=== PATIENT | female | born 1970 | race Caucasian/White ===

== ENCOUNTER 2019-12-31 03:56 | Day surgery (SDC) | payer BC ==
[2019-12-31] MEDS ORDERED: NORMAL SALINE 1000 ML 1,000 ML IV ONE (04:09)
[2019-12-31 04:31] LABS: ABSOLUTE BASOPHILS # (AUTO) 0.2 10^3/uL (0.0-0.2); ABSOLUTE EOSINOPHILS # (AUTO) 0.4 10^3/uL (0.0-0.6); ABSOLUTE LYMPHOCYTES (AUTO) 5.9 10^3/uL (0.5-4.7); ABSOLUTE MONOCYTES (AUTO) 1.2 10^3/uL (0.1-1.4); ABSOLUTE NEUT (AUTO) 8.4 10^3/uL (1.7-8.2); BASOPHILS % (AUTO) 1.2 % (0-2); EOSINOPHILS % (AUTO) 2.3 % (0-6); HEMATOCRIT 40.5 % (36.0-47.0); HEMOGLOBIN 14.1 g/dL (12.0-15.5); MEAN CORPUSCULAR HEMOGLOBIN 33.4 pg (27.0-33.4); MEAN CORPUSCULAR HGB CONC 34.8 g/dL (32.0-36.0); MEAN CORPUSCULAR VOLUME 96 fl (80-97); MONOCYTES % (AUTO) 7.3 % (3-13); PLATELET COUNT 399 10^3/uL (150-450); RED BLOOD COUNT 4.22 10^6/uL (3.72-5.28); RED CELL DISTRIBUTION WIDTH 13.3 % (11.5-14.0); SEGMENTED NEUTROPHILS % (AUTO) 52.2 % (42-78); TOTAL CELLS COUNTED % (AUTO) 100 %
--- NOTE | 2019-12-31 04:37 | ER Document Report ---
ED GI/ <FIFI CROWDER - Last Filed: 12/31/19 07:20> - General Mode of Arrival: Ambulatory Information source: Patient <JOSÉ MIGUEL BROWN - Last Filed: 12/31/19 07:24> - General Chief Complaint: Vaginal Bleeding Stated Complaint: VAGINAL BLEEDING Time Seen by Provider: 12/31/19 04:07 Notes: 49-year-old female patient with history of total hysterectomy 20 years ago presents to the emergency department with complaints of vaginal bleeding that began after intercourse. Patient reports she started bleeding vaginally at approximately 10 PM. She states that she has used towels and has gone through several. She denies any pain but reports a "fullness". She has never had symptoms like these before. She has not had intercourse in 1 year prior to tonight. She reports that the intercourse was aggressive. (JOSÉ MIGUEL BROWN) - Related Data Allergies/Adverse Reactions: Sulfa (Sulfonamide Antibiotics) Allergy (Verified 12/31/19 04:14) Past Medical History - General Information source: Patient - Social History Smoking Status: Never Smoker Family History: Reviewed & Not Pertinent Patient has homicidal ideation: No - Medical History Medical History: Other - Fibromyalgia Past Surgical History: Reports: Hx Gynecologic Surgery <JOSÉ MIGUEL BROWN - Last Filed: 12/31/19 07:24> Review of Systems - Review of Systems Female Genitourinary: Vaginal bleeding -: Yes All other systems reviewed and negative <JOSÉ MIGUEL BROWN - Last Filed: 12/31/19 07:24> Physical Exam <JOSÉ MIGUEL BROWN - Last Filed: 12/31/19 07:24> - Vital signs Vitals: Temp Pulse Resp BP Pulse Ox 97.6 F 144 H 22 H 109/72 99 12/31/19 04:04 12/31/19 04:04 12/31/19 04:04 12/31/19 04:04 12/31/19 04:04 - Notes Notes: PHYSICAL EXAMINATION: GENERAL: Well-appearing, well-nourished and in no acute distress. HEAD: Atraumatic, normocephalic. EYES: Pupils equal round and reactive to light, extraocular movements intact, conjunctiva are normal. ENT: Nares patent, oropharynx clear without exudates. Moist mucous membranes. NECK: Normal range of motion, supple without lymphadenopathy LUNGS: Breath sounds clear to auscultation bilaterally and equal. No wheezes rales or rhonchi. HEART: Regular rate and rhythm without murmurs ABDOMEN: Soft, nontender, nondistended abdomen. No guarding, no rebound. No masses appreciated. Female : Normal external genitalia. Cuff intact. Small amount of dark red blood noted in the vaginal canal, very mild active bleeding noted. Musculoskeletal: Normal range of motion, no pitting or edema. No cyanosis. NEUROLOGICAL: Cranial nerves grossly intact. Normal speech, normal gait. Normal sensory, motor exams PSYCH: Normal mood, normal affect. SKIN: Warm, Dry, normal turgor, no rashes or lesions noted. (JOSÉ MIGUEL BROWN) Course - Laboratory Result Diagrams: 12/31/19 06:48 12/31/19 04:10 <FIFI CROWDER - Last Filed: 12/31/19 07:20> - Laboratory Result Diagrams: 12/31/19 06:48 12/31/19 04:10 <JOSÉ MIGUEL BROWN - Last Filed: 12/31/19 07:24> - Re-evaluation Re-evalutation: 12/31/19 07:20 Has to do a reevaluation of Ms. Rawls, remarkable for clotted blood in the posterior vaginal vault, right inferior posterior wall tear with some clotted blood noted. Given the drop in hemoglobin and the duration of bleeding, [employer] front end architect Dr. Amaya was contacted. (FIFI CROWDER) 12/31/19 05:32 Patient was initially tachycardic on arrival with a heart rate of 144. This quickly resolved after patient settled into a room and placed on the monitor. She has not had any episodes of syncope. She has never had a blood transfusion before. Her vaginal exam did not show any obvious hemorrhage. The cuff appeared intact. Her initial hemoglobin is 14. Repeat will be drawn in 2 hours. Patient continues to deny any pain. 12/31/19 07:14 Hemoglobin has dropped to 11.8. She has not had much active bleeding here in the emergency department. New pelvic exam was done with attending physician, Dr. Crowder. Clot was removed, there is a small tear to the posterior vaginal cuff. Dr. Crowder will call [employer] front end architect. (JOSÉ MIGUEL BROWN) - Vital Signs Vital signs: Temp Pulse Resp BP Pulse Ox 98.1 F 144 H 20 116/78 97 12/31/19 04:07 12/31/19 04:04 12/31/19 06:01 12/31/19 06:01 12/31/19 06:01 - Laboratory Laboratory results interpreted by me: 12/31/19 12/31/19 12/31/19 04:10 04:10 05:06 WBC 16.0 H RBC Hgb Hct Absolute Neuts (auto) 8.4 H Absolute Lymphs (auto) 5.9 H Glucose 129 H Urine Protein 100 H Urine Glucose (UA) 50 H Urine Ketones TRACE H Urine Blood LARGE H 12/31/19 06:48 WBC 15.5 H RBC 3.62 L Hgb 11.8 L D Hct 34.7 L Absolute Neuts (auto) Absolute Lymphs (auto) Glucose Urine Protein Urine Glucose (UA) Urine Ketones Urine Blood Discharge <FIFI CROWDER - Last Filed: 12/31/19 07:20> - Discharge Admitting Provider: [facility] - Dr. Amaya <JOSÉ MIGUEL BROWN - Last Filed: 12/31/19 07:24> - Discharge Clinical Impression: VAGINAL CUFF TEAR Condition: Stable Disposition: ADMITTED OBSERVATION
[2019-12-31 04:47] LABS: ALBUMIN 4.8 g/dL (3.5-5.0); ALKALINE PHOSPHATASE 73 U/L (38-126); ANION GAP 9 (5-19); ASPARTATE AMINO TRANSFERASE 32 U/L (14-36); BILIRUBIN,DIRECT 0.2 mg/dL (0.0-0.4); BILIRUBIN,TOTAL 0.7 mg/dL (0.2-1.3); BLOOD UREA NITROGEN 12 mg/dL (7-20); CALCIUM 10.1 mg/dL (8.4-10.2); CARBON DIOXIDE 24 mmol/L (22-30); CHLORIDE 105 mmol/L (98-107); GLUCOSE 129 mg/dL (75-110); POTASSIUM 4.3 mmol/L (3.6-5.0)
[2019-12-31 05:35] LABS: APPEARANCE,URINE CLOUDY; BILIRUBIN,URINE NEGATIVE (NEGATIVE); COLOR,URINE RED; GLUCOSE, URINE 50 mg/dL (NEGATIVE); KETONES,URINE TRACE mg/dL (NEGATIVE); LEUKOCYTE ESTERASE,URINE NEGATIVE (NEGATIVE); NITRITE,URINE NEGATIVE (NEGATIVE); PROTEIN,URINE 100 mg/dL (NEGATIVE); URINE SPECIFIC GRAVITY 1.029; UROBILINOGEN,URINE NEGATIVE mg/dL (<2.0)
[2019-12-31 07:02] LABS: HEMATOCRIT 34.7 % (36.0-47.0); MEAN CORPUSCULAR HEMOGLOBIN 32.7 pg (27.0-33.4); MEAN CORPUSCULAR HGB CONC 34.1 g/dL (32.0-36.0); MEAN CORPUSCULAR VOLUME 96 fl (80-97); PLATELET COUNT 347 10^3/uL (150-450); RED BLOOD COUNT 3.62 10^6/uL (3.72-5.28); RED CELL DISTRIBUTION WIDTH 13.3 % (11.5-14.0); WHITE BLOOD COUNT 15.5 10^3/uL (4.0-10.5)
[2019-12-31 07:10] LABS: HEMOGLOBIN 11.8 g/dL (12.0-15.5)
[2019-12-31] MEDS ORDERED: FENTANYL CITRATE INJ/PF 100 MCG/2 ML AMPUL ONE (08:14)
[2019-12-31] MEDS ORDERED: MIDAZOLAM 2 MG/2 ML INJ ONE (08:14)
[2019-12-31] MEDS ORDERED: DEXAMETHASONE SOD PHOSPHATE INJ 4 MG/1 ML VIAL ONE (08:14)
[2019-12-31] MEDS ORDERED: PROPOFOL INJ 200 MG/20 ML VIAL IV ONE (08:15)
[2019-12-31] MEDS ORDERED: ONDANSETRON HCL INJ/PF 4 MG/2 ML SDV ONE (08:15)
[2019-12-31] MEDS ORDERED: MEPERIDINE HCL/PF INJ 25 MG/1 ML DISP.SYRIN IV PRN (08:50)
[2019-12-31] MEDS ORDERED: FENTANYL CITRATE INJ/PF 100 MCG/2 ML AMPUL IV PRN ×3 (08:50)
[2019-12-31] MEDS ORDERED: PROMETHAZINE HCL INJ 25 MG/1 ML VIAL IV PRN (08:50)
[2019-12-31] MEDS ORDERED: DIPHENHYDRAMINE HCL 50 MG/ML VIAL IV PRN (08:50)
--- NOTE | 2019-12-31 09:03 | Operative Report ---
Operative Report DATE OF SURGERY: 12/31/19 PREOPERATIVE DIAGNOSIS: Vaginal laceration post intercourse POSTOPERATIVE DIAGNOSIS: Same OPERATION: Repair of vaginal laceration. SURGEON: OSCAR DOWD ANESTHESIA: GA TISSUE REMOVED OR ALTERED: None COMPLICATIONS: None ESTIMATED BLOOD LOSS: Negligible INTRAOPERATIVE FINDINGS: 4 cm laceration at the apex of the vagina along the vaginal cuff PROCEDURE: She placed in a dorsal lithotomy position prepped her physical fashion. Speculum placed in the vagina and tear was noted at the apex of the vagina along the vaginal cuff is approximately 4 cm. Using 2-0 Vicryl 3 layers closure was then performed. Hemostasis was noted. And at the time of surgery the patient had essentially stopped bleeding. Was removed and she was taken recovery room in good condition.
[2019-12-31] MEDS ORDERED: ONDANSETRON HCL 8 MG TABLET PO PRN (09:26)
[2019-12-31 09:40] VITALS: BP 117/59
[2019-12-31] MEDS ORDERED: IBUPROFEN 800 MG TABLET PO SCH (14:00)
== END 2019-12-31 10:31 | disposition home or self-care (01) ==
LOC: ER 03:56 → OROUT 10:25
PROVIDERS: ATTEND Obstetrics & Gynecology Gynecology
DX: S31.41XA Laceration without foreign body of vagina and vulva, initial encounter (principal); X58.XXXA Exposure to other specified factors, initial encounter; Y93.9 Activity, unspecified; M79.7 Fibromyalgia; Z88.2 Allergy status to sulfonamides
CPT/HCPCS: 99284; 96360; 36415; 84703; 85025; 80053; 81001; 57200; J2250; J1100; J3010; J2405; J7030; J2704; 940; 99140